=== PATIENT | male | born 1950 | race Caucasian/White ===

== ENCOUNTER → 2023-07-30 | Outpatient (CLI) | payer SELFPAY ==
--- NOTE | 2023-07-30 15:52 | Diagnostic Imaging Report ---
INDICATION: Calcium scoring, hypertension, obesity. TECHNIQUE: CT coronary calcium scoring study performed with noncontrast images of the heart followed by calculation of cardiac calcium score. Dose reduction protocol was used. FINDINGS: Raw data images demonstrate the visualized portions of the lung alvarez to be clear. The entirety of the lungs are not included on the study. There are no enlarged mediastinal nodes or chest wall lesions. CT coronary calcium study shows extensive coronary calcifications. Score of 262 is obtained in the LAD with diffuse calcification. Score of 9 was obtained in the left circumflex coronary artery. Score of 382 is obtained in the right coronary artery. IMPRESSION: Total coronary calcium score of 653 is compatible with extensive overall plaque burden. Recommend further workup as clinically warranted. Dictated by: Dictated on workstation # [id number]
== END ==
LOC: RAD 13:26
PROVIDERS: ATTEND Nurse Practitioner Family
DX: I10 Essential (primary) hypertension (principal); E66.9 Obesity, unspecified; R60.9 Edema, unspecified
CPT/HCPCS: 75571